=== PATIENT | male | born 2000 | race Caucasian/White ===

== ENCOUNTER → 2020-04-07 | Outpatient (REF) | payer BC ==
[2020-04-07 17:27] LABS: C REACTIVE PROTEIN QUANTITATIV < 0.30 MG/DL (0.00-0.30)
== END ==
LOC: M LAB REF 16:40
PROVIDERS: ATTEND Internal Medicine
DX: R52 Pain, unspecified (principal); K58.0 Irritable bowel syndrome with diarrhea